=== PATIENT | female | born 1990 | race Caucasian/White ===

== ENCOUNTER → 2019-11-06 09:07 | Outpatient (CLI) | payer OTHER, SELFPAY ==
[2019-11-07 10:39] LABS: Strep Grp B PCR NEG for Grp B Strep
== END ==
PROVIDERS: Visit Provider Family Medicine
DX: Z34.90 Encounter for supervision of normal pregnancy, unspecified, unspecified trimester (principal)
CPT/HCPCS: 87653

== ENCOUNTER 2019-11-17 10:19 | Inpatient (IN) | payer OTHER, SELFPAY ==
[2019-11-17] MEDS: LACTATED RINGERS 1,000 ML 100 ML IV ×3 (13:35→22:46)
[2019-11-17 13:53] LABS: Add Manual Diff / Slide Review NO; Basophils Absolute Auto 100 /uL (0-100); Basophils Percent Auto 0.8 % (0-2); Eosinophils Absolute Auto 0 /uL (0-450); Eosinophils Percent Auto 0.2 % (2-4); Hematocrit 39.6 % (36-46); Hemoglobin 13.2 g/dL (12.0-16.0); Lymphocytes Absolute Auto 1900 /uL (1100-4500); Lymphocytes Percent Auto 15.6 % (25-40); Mean Corpuscular HGB Conc 33.2 % (30-36); Mean Corpuscular Hemoglobin 29.6 PG (26-34); Mean Corpuscular Volume 89.3 fL (80-100); Monocytes Absolute Auto 700 /uL (0-900); Monocytes Percent Auto 5.9 % (3-14); Neutrophils Absolute Auto 9500 /uL (1500-7000); Neutrophils Percent Auto 77.5 % (50-75); Platelet Count 186 X10^3/uL (150-400); Red Blood Cell Count 4.44 X10^6/uL (4.0-5.2); Red Cell Distribution Width 14.6 % (11.6-14.8); White Blood Cell Count 12.3 X10^3/uL (4.5-11.0)
[2019-11-17] MEDS: FENT 2MCG/ML BUPIV 0.125% EPI 200 MCG/100 ML PLAST..BAG 8 MCG EPIDURAL (14:15)
--- NOTE | 2019-11-17 19:19 | PM.OBHP.1 ---
OB HPI Date/Time Date of admission: 11/17/19 Date Patient Seen: 11/17/19 Time Patient Seen: 19:00 History of Present Condition Chief complaint: LABOR : 1 Para: 0 Estimated Date of Delivery: 11/27/19 Estimated Gestational Age (weeks): 38w4d Narrative: 29yo at 38w4d who presented with painful contractions. Contractions increasing in intensity and frequency since early this morning. Minimal vaginal bleeding. No LOF. History of Present care: good care Dating criteria: LMP confirmed by 1st trimester US Ultrasounds: normal 1st trimester US and normal mid trimester US Obstetrical complications: none Medical complications: none Preadmission Labs Blood type: A (+) positive -: Antibody screen: negative, GBS status: negative, HBsAG: negative, HIV: negative and RPR/VDLR: negative -: Rubella: immune and Varicella: immune HCT: 35.8 PAP: Normal Quad screen: Normal 1 hr GTT: 105 Evaluation Evaluation Baseline heart rate: 130 Variability: Moderate (11-25) monitor accelerations: Present monitor decelerations: Absent Contraction Frequency (minutes): 2 Uterine Contraction Intensity: Strong/Firm Category of Tracing: I Cervical dilation (cm): 9 Cervical effacement (%): 100 station: 0 Laboratory results: Laboratory Tests 11/17/19 11/17/19 13:35 13:35 WBC 12.3 H RBC 4.44 Hgb 13.2 Hct 39.6 MCV 89.3 MCH 29.6 MCHC 33.2 RDW 14.6 Plt Count 186 Neut % (Auto) 77.5 H Lymph % (Auto) 15.6 L [place] % (Auto) 5.9 Eos % (Auto) 0.2 L Baso % (Auto) 0.8 Neut # (Auto) 9500 H Lymph # (Auto) 1900 [place] # (Auto) 700 Eos # (Auto) 0 Baso # (Auto) 100 Blood Type A Positive Antibody Screen Negative PFSH Medical History Acid reflux (Acute) Asthma (Acute) Sciatica of right side (Acute) Varicose veins during , antepartum (Acute) Surgical History [place] teeth extracted (Acute) Family History Brother No problems noted. Family/Other Leukemia Family/Other Anencephaly Mother Cervical cancer Father Hypertension Stroke Cancer Colon cancer Grandfather Diabetes mellitus Stroke Grandmother Hypertension Early menopause occurring in patient age younger than 45 years Social History marital status: household members: spouse pets and animals: Yes (Dog : Gunner; Cat : Jennifer) education level: college (Bachelors degree) special krystle needs: No leisure activities: exercise Smoking Status: Never smoker substance use type: does not use Meds Home Medications and Allergies Home Medications Medication Instructions Recorded Confirmed Type epinephrine 0.3 mg/0.3 mL 0.3 mg IM ONCE 10/17/19 10/21/19 History injection, auto-injector prenat.vits,praveena,[id number] 1 tab PO DAILY 10/17/19 10/21/19 History Allergies Allergy/AdvReac Type Severity Reaction Status Date / Time penicillin G Allergy Intermediate Hives Verified 10/21/19 13:48 nuts Allergy Intermediate Uncoded 10/21/19 13:48 Exam Narrative Exam Narrative: Gen: NAD, sitting comfortably in bed, appears well CV: RRR, no murmurs Resp: clear to auscultation bilaterally Abd: soft, gravid, nontender Ext: no edema Objective Labs Result Diagrams: 11/17/19 13:35 Labs: Laboratory Results - last 24 hr 11/17/19 11/17/19 13:35 13:35 WBC 12.3 H RBC 4.44 Hgb 13.2 Hct 39.6 MCV 89.3 MCH 29.6 MCHC 33.2 RDW 14.6 Plt Count 186 Neut % (Auto) 77.5 H Lymph % (Auto) 15.6 L [place] % (Auto) 5.9 Eos % (Auto) 0.2 L Baso % (Auto) 0.8 Neut # (Auto) 9500 H Lymph # (Auto) 1900 [place] # (Auto) 700 Eos # (Auto) 0 Baso # (Auto) 100 Blood Type A Positive Antibody Screen Negative Assessment and Plan Assessment and Plan Assessment and Plan narrative: 29yo at 38w4d who presented in active labor. without complications. GBS negative, Rh positive. After informed consent, AROM performed with production of clear fluid. - Expectant management, anticipate - Epidural for pain control in place - FHT reassuring - GBS negative, no antibiotics indicated
[2019-11-17] MEDS: CITRIC ACID/SODIUM CITRATE 15 ML SOLUTION 30 ML PO (19:46)
[2019-11-17] MEDS: OXYTOCIN PREMIX 30 UNIT/500 ML PLAST..BAG IV (22:47)
--- NOTE | 2019-11-17 22:58 | PM.OBPNLAB ---
Date/Time Date Patient Seen: 11/17/19 Time Patient Seen: 23:00 Pain Control Pain control: epidural Pelvic Exam Dilation (cm): 9 Effacement (%): 100 station: 0 Contractions Contractions on admission: regular Monitor mode: External Pitocin rate (mU/min): 2 Contraction frequency (min): 3 Contraction duration (min): 1 Contraction pattern: Regular Contraction intensity: Strong/Firm Status status: Category ll Heart Rate Baseline: 150 Monitor Accelerations: Present Monitor Decelerations: Variable Monitor Variability: Moderate Assessment and Plan Assessment: active labor Comments: 29yo at 38w4d in active labor. Pt with minimal cervical change in the last 4 hours, however contractions did space out for a period of time. Pitocin now started to augment. Baby is currently in OP position. - Expectant management, anticipate - Frequent turning of mother to help promote transition to OA - FHT overall reassuring, brief period with variable decels now resolving - GBS negative, no antibiotics indicated - Epidural for pain control working well
[2019-11-17] MEDS: FENT 2MCG/ML BUPIV 0.125% EPI 200 MCG/100 ML PLAST..BAG 14 MCG EPIDURAL (23:51)
--- NOTE | 2019-11-18 00:48 | P.PCNOB_ITS ---
Labor & Delivery Delivery date: 11/18/19 Cervical ripening method: none Induction method: none Delivery augmentation: rupture of membranes and pitocin Delivery monitor: external FHT Route of delivery: vacuum extraction Indication for instrumentation: nonreassuring FHR tracing Episiotomy description: None L&D Laceration Description: Perineal - 2nd Degree Delivery repair: chromic Estimated blood loss (mL): 200 Anesthesia type: Epidural Narrative: PROCEDURE: at 38w4d presented in active labor and was admitted to Labor and Delivery. The patient progressed through the 1st stage over 11 hours. Pain was controlled with an epidural. AROM was performed at 9cm with production of clear fluid. The pts contractions slowed, and pitocin was started for augmentation. The pt progressed to complete, with FHT remaining reassuring. She was allowed to labor down. With pushing, there were deep variable decels to the 70-80s. These became recurrent and prolonged, and with heart tones in the 70s and not recovering it was decided to proceed with a vacuum-assisted delivery. The pt was consented. Vacuum cup of the [place] OmniC[employer] applied to the flexion point without difficulty and during contractions, pressure applied between 400-600 mmHg as indicated in the green zone of the pressure gauge. Infant delivered after 4 contractions with 14 pulls with 1 pop-off over an intact perineum. Total duration of application of the vacuum was 9 minutes. The anterior shoulder and remainder of the infant was delivered without difficulty at 00:12. Cord clamped and cut. Infant handed over to nursing. Cord gases were sent. Arterial pH 7.260, Venous pH 7.271. Infant was examined and no evidence of injury noted, but hematoma present at the site of vacuum. The total length of the second stage was 30 minutes. APGARs 8/9. The perineum and vagina were inspected with 2nd degree perineal laceration repaired with 3-O Chromic. Bilateral labial lacerations were not repaired as they were hemostatic. PREPROCEDURE DIAGNOSIS: Intrauterine at 38w4d GBS negative RH positive POSTPROCEDURE DIAGNOSIS: Intrauterine at 38w5d, delivered Same as preprocedure Vacuum-assisted vaginal delivery ROM APPEARANCE: Clear BABY A DELIVERY TIME: 00:12 BABY A OUTCOME: Viable BABY A WEIGHT: [] BABY A NUCHAL CORD: No BABY A CORD GASES OBTAINED: Yes PLACENTA DELIVERY TIME: 00:16 PLACENTA APPEARANCE: Intact [place] Baby 1: gender: Female Presentation: vertex position: Right Occiput Anterior Placenta delivery description: Spontaneous cord vessel description: 3 Vessels score (1 min): 8 score (5 min): 9 Plan for aftercare: Normal care
[2019-11-18] MEDS: IBUPROFEN 600 MG TABLET PO ×4 (02:28→22:25)
[2019-11-18] MEDS: DERMOPLAST SPRAY 20% 60 ML 1 SPRAY TOP (02:28)
[2019-11-18] MEDS: LANOLIN OINT 7 GM 1 APPLIC TOP (02:28)
--- NOTE | 2019-11-18 08:47 | P.PNOB_ITS ---
Subjective - OB Subjective Narrative: The pt reports that overall she is feeling well. She has moderate pelvic cramping. Her lochia is appropriate. She has ambulated only minimally. [place] catheter was placed last night, unclear circumstances, and removed this morning. The pt has not yet voided. She has not yet passed flatus. She is and working on latch. Date Patient Seen: 11/18/19 Time Patient Seen: 07:30 Exam Narrative Exam Narrative: Gen: NAD, sitting comfortably in bed, appears well CV: RRR, no murmurs Resp: clear to auscultation bilaterally Abd: soft, appropriately tender, fundus firm and below umbilicus, nondistended Ext: no edema Objective Labs Result Diagrams: 11/17/19 13:35 Labs: Laboratory Results - last 24 hr 11/17/19 11/17/19 13:35 13:35 WBC 12.3 H RBC 4.44 Hgb 13.2 Hct 39.6 MCV 89.3 MCH 29.6 MCHC 33.2 RDW 14.6 Plt Count 186 Neut % (Auto) 77.5 H Lymph % (Auto) 15.6 L [place] % (Auto) 5.9 Eos % (Auto) 0.2 L Baso % (Auto) 0.8 Neut # (Auto) 9500 H Lymph # (Auto) 1900 [place] # (Auto) 700 Eos # (Auto) 0 Baso # (Auto) 100 Blood Type A Positive Antibody Screen Negative Assessment & Plan Assessment and Plan (1) (spontaneous vaginal delivery): Status: Acute Assessment and plan: 29yo PPD #0 s/p vacuum-assisted vaginal delivery with 2nd degree perineal laceration without complications. Pt doing well . - Normal care - support - Rubella and Varicella immune Current Visit: Yes Time Spent With Patient Time: Total time spent is greater than 50% in coordination of care (as documented) at patient's floor/unit and/or counseling patient: Time with patient: 15-24 minutes
[2019-11-18] MEDS: DOCUSATE 100 MG CAPSULE PO (09:29)
[2019-11-18] MEDS: PRENATAL VIT,CALC/IRON/FOLIC 1 TABLET 1 TAB PO (09:30)
[2019-11-18] MEDS: ACETAMINOPHEN 325 MG TABLET 650 MG PO (14:52)
[2019-11-19] MEDS: ACETAMINOPHEN 325 MG TABLET 650 MG PO ×2 (01:07→10:44)
[2019-11-19] MEDS: IBUPROFEN 600 MG TABLET PO ×2 (04:14→10:45)
--- NOTE | 2019-11-19 09:01 | PM.OBDS.1 ---
Discharge Providers Provider Date of admission: 11/17/19 10:19 Discharge Date: 11/19/19 Consults: 11/19/19 00:55 Consult to Certified Cytotechnologist Routine Comment: Discharge provider: Ayleen Nicole MD Summary Hospital Course Date Patient Seen: 11/19/19 Time Patient Seen: 08:30 Procedures: Vacuum-assisted vaginal delivery Hospital Course: The pt was admitted in active labor. She received an epidural for pain control. AROM was performed with production of clear fluid. Due to nonreassuring heart tones, a vacuum was used to assist with delivery, and the pt had a vaginal delivery of a viable baby girl at 00:12. A second degree perineal laceration was repaired. The pt tolerated delivery well. , there were no complications. At the time of discharge she was voiding, ambulating, and passing flatus without difficulty. Her lochia was decreasing appropriately. She was with good latch. Her pain was well controlled. She will f/u in clinic in 6 weeks. She is undecided regarding control. Peripartum Data Delivery Method: Assisted Delivery Laceration description: Perineal - 2nd Degree Episiotomy description: None Procedures: Vacuum-assisted vaginal delivery 1: Gender: Female Disposition of : home Discharge Diagnosis (1) Vacuum-assisted vaginal delivery: Status: Acute Time Spent with Patient Time attestation: Total time spent providing and/or coordinating discharge services: Objective Labs Result Diagrams: 11/17/19 13:35 Exam Narrative Exam Narrative: Gen: NAD, sitting comfortably in bed, appears well CV: RRR, no murmurs Resp: clear to auscultation bilaterally Abd: soft, appropriately tender, fundus firm and below umbilicus, nondistended Ext: no edema Discharge Plan Discharge Plan Patient Disposition: Home Discharge orders & Medications Prescriptions: New acetaminophen 325 mg Tablet 650 mg PO Q6HR PRN (Reason: Pain, Mild (1-3)) Qty: 30 RF: 0 Dermoplast (with menthol) 20-0.5 % Aerosol 1 spray topical Q1HR PRN (Reason: perineal pain) Qty: 15 RF: 0 docusate sodium [DOK] 100 mg Capsule 100 mg PO DAILY Qty: 30 RF: 0 ibuprofen 600 mg Tablet 600 mg PO Q6HR PRN (Reason: Pain, Mild (1-3)) Qty: 30 RF: 0 [id number] Cream 1 applic topical PRN PRN (Reason: Tenderness) Qty: 15 RF: 0 Continued prenat.vits,praveena,[id number] Tablet 1 tab PO DAILY RF: 0 Follow up/Referrals: Ayleen Nicole MD [Physician] - 6 Weeks (Please schedule followup appointment for 6 weeks) Skin/Wound/Dressing Care Report to your healthcare provider any signs of infection, such as:: chills, fever, increased pain and unusual drainage Visit Report/Discharge Packet Instructions: DI for Labor and Delivery, Vaginal Stand Alone Forms: Discharge: Care Visit Report Forms: Patient Portal/API, Stroke Signs & Symptoms Discharges patient from system. Discharge Date/Time: 11/19/19 11:15
[2019-11-19] MEDS: DOCUSATE 100 MG CAPSULE PO (10:45)
[2019-11-19] MEDS: PRENATAL VIT,CALC/IRON/FOLIC 1 TABLET 1 TAB PO (10:45)
== END 2019-11-19 11:15 | disposition home or self-care (01) | DRG 807 ==
PROVIDERS: Admitting Provider Family Medicine; Visit Provider Family Medicine
DX: O60.14X0 Preterm labor third trimester with preterm delivery third trimester, not applicable or unspecified (principal); Z37.0 Single live birth; Z3A.38 38 weeks gestation of pregnancy; O70.1 Second degree perineal laceration during delivery; O76 Abnormality in fetal heart rate and rhythm complicating labor and delivery
CPT/HCPCS: 01967; 36415; 59050; 59410; 85025; 86850; 86900; 86901; G0379; J2590